=== PATIENT | male | born 1975 | race Caucasian/White ===

== ENCOUNTER 2017-03-29 10:38 | Emergency (ER) | payer OTHER ==
[2017-03-29 10:49] VITALS: BMI 39.4
--- NOTE | 2017-03-29 11:15 | PDOC ---
History of Present Illness - General History Source: Patient Exam Limitations: No Limitations - History of Present Illness Initial Comments: 03/29/17 11:33 The patient is a 41 year old male with a significant PMH of hypertension and hyperlipidemia who presents to the emergency department with suprapubic and left lower quadrant pain that began yesterday afternoon. The patient states the suprapubic and left lower quadrant pain is worsened with rapid changes in position and alleviated by staying still. The patient notes his abdomen feels bloated since yesterday. The patient reports his last bowel movement was at 4PM yesterday and was normal. The patient denies fever, chills, nausea, vomit, diarrhea and constipation. Denies dysuria, frequency, urgency and hematuria. 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 The patient does not want any pain medication at this time. Allergies: NKA Past surgical history: None reported. Social history: Former smoker (quit 9 years ago). No reported alcohol or drug use. <Kenia Wilson - Last Filed: 03/29/17 14:02> <Tess Bernal - Last Filed: 03/29/17 18:56> - General Chief Complaint: Pain Stated Complaint: ABD PAIN Time Seen by Provider: 03/29/17 11:10 Past History <Kenia Wilson - Last Filed: 03/29/17 14:02> - Past Medical History COPD: No HTN: Yes Hypercholesterolemia: Yes - Suicide/Smoking/Psychosocial Hx Smoking History: Never smoked Have you smoked in the past 12 months: No Information on smoking cessation initiated: No Hx Alcohol Use: No Drug/Substance Use Hx: No Substance Use Type: None <Tess Bernal - Last Filed: 03/29/17 18:56> - Past Medical History Allergies/Adverse Reactions: Allergies Allergy/AdvReac Type Severity Reaction Status Date / Time No Known Allergies Allergy Verified 03/29/17 10:47 Home Medications: Ambulatory Orders Atorvastatin Ca [Lipitor] 10 mg PO HS 03/09/16 Lisinopril/Hydrochlorothiazide [Lisinopril-Hctz 10-12.5 mg Tab] 1 each PO DAILY 03/09/16 Ondansetron [Zofran *Odt*] 4 mg SL TID #30 od.tablet 03/09/16 Ciprofloxacin [Cipro -] 500 mg PO Q12H #20 tablet 03/29/17 Metronidazole [Flagyl -] 500 mg PO Q8H #30 tablet 03/29/17 Review of Systems - Review of Systems Able to Perform ROS?: Yes Comments:: 03/29/17 13:59 GENERAL/CONSTITUTIONAL: No fever or chills. No weakness. HEAD, EYES, EARS, NOSE AND THROAT: No change in vision. No ear pain or discharge. No sore throat. GASTROINTESTINAL: (+) Suprapubic and LLQ pain. No nausea, vomiting, diarrhea or constipation. GENITOURINARY: No dysuria, frequency, or change in urination. CARDIOVASCULAR: No chest pain or shortness of breath. RESPIRATORY: No cough, wheezing, or hemoptysis. MUSCULOSKELETAL: No joint or muscle swelling or pain. No neck or back pain. SKIN: No rash NEUROLOGIC: No headache, vertigo, loss of consciousness, or change in strength/ sensation. ENDOCRINE: No increased thirst. No abnormal weight change. HEMATOLOGIC/LYMPHATIC: No anemia, easy bleeding, or history of blood clots. ALLERGIC/IMMUNOLOGIC: No hives or skin allergy. <Kenia Wilson - Last Filed: 03/29/17 14:02> *Physical Exam - Vital Signs Last Vital Signs Temp Pulse Resp BP Pulse Ox 98.8 F 100 H 16 149/80 100 03/29/17 10:47 03/29/17 10:47 03/29/17 10:47 03/29/17 10:47 03/29/17 10:47 - Physical Exam Comments: 03/29/17 14:00 GENERAL: Awake, alert, and fully oriented, in no acute distress HEAD: No signs of trauma EYES: PERRLA, EOMI, sclera anicteric, conjunctiva clear ENT: Auricles normal inspection, hearing grossly normal, nares patent, oropharynx clear without exudates. Moist mucosa NECK: Normal ROM, supple, no lymphadenopathy, JVD, or masses LUNGS: Breath sounds equal, clear to auscultation bilaterally. No wheezes, and no crackles HEART: Regular rate and rhythm, normal S1 and S2, no murmurs, rubs or gallops ABDOMEN: (+) Suprapubic and left lower quadrant tenderness to palpation with voluntary guarding. +mild distention. No rebound. No masses EXTREMITIES: Normal range of motion, no edema. No clubbing or cyanosis. No cords, erythema, or tenderness BACK: No midline spinal tenderness in cervical/thoracic/lumbar region NEUROLOGICAL: Normal speech, cranial nerves intact, negative pronator drift, 5/ 5 strength in all 4 extremities, normal sensation to light touch in all 4 extremities, normal cerebellar exam, normal gait, normal reflexes and tone SKIN: Warm, Dry, normal turgor, no rashes or lesions noted. <Kenia Wilson - Last Filed: 03/29/17 14:02> - Vital Signs Last Vital Signs Temp Pulse Resp BP Pulse Ox 98.8 F 100 H 16 149/80 100 03/29/17 10:47 03/29/17 10:47 03/29/17 10:47 03/29/17 10:47 03/29/17 10:47 <Tess Bernal - Last Filed: 03/29/17 18:56> ED Treatment Course - LABORATORY CBC & Chemistry Diagram: 03/29/17 12:00 03/29/17 12:00 <Kenia Wilson - Last Filed: 03/29/17 14:02> - LABORATORY CBC & Chemistry Diagram: 03/29/17 12:00 03/29/17 12:00 <Tess Bernal - Last Filed: 03/29/17 18:56> Medical Decision Making - Medical Decision Making 03/29/17 11:40 41-year-old male history of hypertension, hyperlipidemia presents with 1 day of suprapubic and left lower quadrant tenderness to palpation. Vitals remarkable for mild tachycardia to 100. Exam with suprapubic and left lower quadrant tenderness to palpation and voluntary guarding. Differential includes but is not limited to diverticulitis versus colitis versus UTI. Will obtain blood work , CT scan, and urinalysis. Patient declines pain medication for now. 03/29/17 15:11 CT scan with acute sigmoid diverticulitis, uncomplicated. Patient has been informed of the results. He is requesting food. Will PO challenge the patient and give first dose of Cipro/Flagyl. Patient's pain is well-controlled. If patient is able to tolerate PO will likely discharge. 03/29/17 16:00 Pt tolerating PO, requests DC home. I discussed the physical exam findings, ancillary test results and final diagnoses with the patient. I answered all of the patient's questions. The patient was satisfied with the care received and felt comfortable with the discharge plan and treatment plan. The patient will call their primary care physician within 24 hours to arrange follow-up and will return to the Emergency Department with any new, persistent or worsening symptoms. <Tess Bernal - Last Filed: 03/29/17 18:56> *DC/Admit/Observation/Transfer - Attestations Scribe Attestion: 03/29/17 14:07 Documentation prepared by Kenia Wilson, acting as medical officer psychiatry for Tess Bernal MD. <Kenia Wilson - Last Filed: 03/29/17 14:02> - Discharge Dispostion Admit: No - Attestations Physician Attestion: 03/29/17 15:15 I, Dr. Tess Bernal MD, attest that this document has been prepared under my direction and personally reviewed by me in its entirety. I further attest, that it accurately reflects all work, treatment, procedures and medical decision -making performed by me. <Tess Bernal - Last Filed: 03/29/17 18:56> Diagnosis at time of Disposition: Diverticulitis - Discharge Dispostion Disposition: HOME Condition at time of disposition: Stable - Prescriptions Prescriptions: Ciprofloxacin [Cipro -] 500 mg PO Q12H #20 tablet Metronidazole [Flagyl -] 500 mg PO Q8H #30 tablet - Referrals Referrals: STAFF,NOT ON [Primary Care Provider] - Jason Trotter MD [Staff Physician] - - Patient Instructions Printed Discharge Instructions: DI for Diverticulitis Additional Instructions: Follow-up with your primary care doctor within 2-[address] Trotter's office (forensic sergeant) for a follow-up appointment within one week. Take your antibiotics as prescribed for 10 days. Return to the emergency department if you have any new, worsening or concerning symptoms.
[2017-03-29 12:10] LABS: BASO % 0.9 % (0-2.0); EOS % 0.9 % (0-4.5); HEMOGLOBIN 15.7 GM/dL (11.7-16.9); LYMPH % 16.2 % (8-40); MCHC 33.5 g/dl (32.0-35.9); MEAN CELL VOLUME 86.6 fl (80-96); MEAN PLT VOLUME 7.4 fl (7.5-11.1); MONO % 6.1 % (3.8-10.2); NEUT % 75.9 % (42.8-82.8); PLATELET COUNT 220 K/MM3 (134-434); RBC 5.43 M/mm3 (4.00-5.60); WHITE BLOOD COUNT 12.3 K/mm3 (4.0-10.0)
[2017-03-29 12:22] LABS: ALBUMIN 4.3 g/dl (3.4-5.0); ANION GAP 7 (8-16); BILIRUBIN,TOTAL 0.8 mg/dL (0.2-1.0); BLOOD UREA NITROGEN 16 mg/dL (7-18); CALCIUM 8.7 mg/dL (8.5-10.1); CHLORIDE 102 mmol/L (98-107); CO2 27 mmol/L (21-32); CREATININE 0.9 mg/dL (0.7-1.3); GLUCOSE,RANDOM 94 mg/dL (74-106); LIPASE 142 U/L (73-393); SGOT/AST 19 U/L (15-37); SGPT/ALT 45 U/L (12-78); SODIUM 136 mmol/L (136-145); TOT PROT 7.2 g/dl (6.4-8.2)
[2017-03-29 12:23] LABS: ALK PHOS 74 U/L (45-117)
[2017-03-29 12:28] LABS: URINE APPEARANCE CLEAR; URINE BILIRUBIN NEGATIVE (NEGATIVE); URINE BLOOD NEGATIVE (NEGATIVE); URINE COLOR LTYELLOW; URINE GLUCOSE (UA) NEGATIVE (NEGATIVE); URINE KETONE NEGATIVE (NEGATIVE); URINE LEUK ESTERASE NEGATIVE (NEGATIVE); URINE NITRITE NEGATIVE (NEGATIVE); URINE PROTEIN NEGATIVE (NEGATIVE); URINE UROBILINOGEN NEGATIVE mg/dL (0.2-1.0)
[2017-03-29] MEDS ORDERED: CIPROFLOXACIN 500 MG TABLET (RESTRICTED TO ID) PO ONE (15:03)
[2017-03-29] MEDS ORDERED: metroNIDAZOLE 250 MG TABLET PO ONE (15:03)
[2017-03-29] MEDS ORDERED: metroNIDAZOLE 250 MG TABLET ONE (15:09)
[2017-03-29 15:41] VITALS: BP 138/75; PULSE 98; TEMP 98.2
== END 2017-03-29 16:01 | disposition home or self-care (01) ==
LOC: JER 10:38
DX: K57.32 Diverticulitis of large intestine without perforation or abscess without bleeding (principal)
CPT/HCPCS: 36415; 74177-TC; 80053; 81003; 83690; 85025; 87086; 99282-25